=== PATIENT | female | born 1965 | race Two or more races ===

== ENCOUNTER 2017-07-24 08:34 | Day surgery (SDC) | payer OTHER ==
[~2017-07-24] VITALS: Ht 157.5 cm; Wt 94.8 kg
[2017-07-24 09:17] VITALS: BP 136/81
[2017-07-24 15:37] VITALS: BP 119/66
== END 2017-07-24 15:25 | disposition home or self-care (01) ==
LOC: DS 08:34 → OR 10:30 → GI 10:30 → DS 15:25
PROVIDERS: Surgery
PROC: 0FT44ZZ Resection of Gallbladder, Percutaneous Endoscopic Approach (ICD-10-PCS; principal; 2017-07-24 10:30)
DX: K80.10 Calculus of gallbladder with chronic cholecystitis without obstruction (principal); K76.0 Fatty (change of) liver, not elsewhere classified; E03.9 Hypothyroidism, unspecified; E66.9 Obesity, unspecified; Z68.41 Body mass index [BMI] 40.0-44.9, adult
CPT/HCPCS: J0690; J1170; J2405; J2704; J2710; J3010; J3490; J7030; J7120

== ENCOUNTER 2017-08-25 14:35 | Emergency (ER) | payer OTHER ==
[~2017-08-25] VITALS: Ht 157.5 cm; Wt 93.9 kg
[2017-08-25 17:34] LABS: BASOPHIL % 0.1 % (0-2); PLATELET COUNT 184 x10^3mcL (130-400); RED CELL DISTRIBUTION WIDTH 13.1 % (11.5-14.5)
[2017-08-25 17:39] LABS: CALCIUM 8.5 mg/dL (8.5-10.1); CARBON DIOXIDE 24.7 mmol/L (21-32); CHLORIDE SERUM 99 mmol/L (98-107); CREATININE SERUM 0.8 mg/dL (0.6-1.0); GFR1 > 60 mL/min; GLUCOSE SERUM 126 mg/dL (74-106); POTASSIUM SERUM 3.6 mmol/L (3.5-5.1); SODIUM SERUM 134 mmol/L (136-145)
[2017-08-25 17:52] LABS: ALBUMIN 3.4 g/dL (3.4-5.0); ALKALINE PHOSPHATASE 97 U/L (46-116); ALT/SGPT 50 U/L (14-59); AST/SGOT 30 U/L (15-37); BILIRUBIN TOTAL 0.83 mg/dL (0.20-1.00); CHOLESTEROL 167 mg/dL (<200); HDL CHOLESTEROL 52 mg/dL (40-60)
[2017-08-25 20:00] LABS: UA SPECIFIC GRAVITY <=1.005 (1.005-1.035); microscopic required? YES; urine erythrocyte 3+ (NEGATIVE)
[2017-08-25 21:16] VITALS: BP 128/63
== END 2017-08-25 21:16 | disposition home or self-care (01) ==
LOC: ED 14:35
PROVIDERS: Emergency Medicine
DX: N39.0 Urinary tract infection, site not specified (principal); Z90.710 Acquired absence of both cervix and uterus
CPT/HCPCS: 83880; J0696; J1885; J7030

== ENCOUNTER 2017-08-29 00:39 | Inpatient (IN) | payer OTHER ==
[~2017-08-29] VITALS: Ht 157.5 cm; Wt 88.5 kg
--- NOTE | 2017-08-29 01:05 | NUR ---
PT WAS CALLED TO RETURN FOR (+) BLOOD CULTURE WELL 2 DIFFERENT ORGANISMS IN HER URINE CULTURE, ONE ESBL. PT WAS SEEN HERE 08/25/17 FOR FEVER & DX W/ UTI. PT HAD HYSTERECTOMY 08/21/17 @ [facility]. PT STATES SHE WENT TO [facility] YESTERDAY FOR CONTINUED FEVERS BUT LEFT WITHOUT BEING SEEN AFTER WAITING FOR SEVERAL HOURS. SEE BY DR. ANGULO.
[2017-08-29 01:44] LABS: BASOPHIL % 0.6 % (0-2); PLATELET COUNT 221 x10^3mcL (130-400); RED CELL DISTRIBUTION WIDTH 13.5 % (11.5-14.5)
[2017-08-29 01:58] LABS: CALCIUM 8.4 mg/dL (8.5-10.1); CARBON DIOXIDE 31.6 mmol/L (21-32); CHLORIDE SERUM 104 mmol/L (98-107); CREATININE SERUM 0.7 mg/dL (0.6-1.0); GFR1 > 60 mL/min; GLUCOSE SERUM 101 mg/dL (74-106); POTASSIUM SERUM 3.3 mmol/L (3.5-5.1); SODIUM SERUM 142 mmol/L (136-145)
[2017-08-29 02:03] LABS: ALKALINE PHOSPHATASE 201 U/L (46-116); ALT/SGPT 69 U/L (14-59); AST/SGOT 51 U/L (15-37); BILIRUBIN TOTAL 0.34 mg/dL (0.20-1.00); TOTAL PROTEIN, SERUM 6.8 g/dL (6.4-8.2)
[2017-08-29 02:04] LABS: ALBUMIN 2.9 g/dL (3.4-5.0)
[2017-08-29 02:37] LABS: UA SPECIFIC GRAVITY <=1.005 (1.005-1.035); microscopic required? YES; urine erythrocyte TRACE (NEGATIVE)
--- NOTE | 2017-08-29 03:39 | NUR ---
REPORT CALLED TO BRANDAN ADAME TO ASSUME CARE OF PT POST TRANSFER TO TELE UNIT.
[2017-08-29 03:48] LABS: AMPHETAMINE QUAL UR NONE DETECTED (NEG <=1000)
[2017-08-29 03:58] LABS: MAGNESIUM 2.2 mg/dL (1.8-2.4); PHOSPHOROUS 3.9 mg/dL (2.5-4.9)
[2017-08-29 04:00] LABS: CHOLESTEROL/HDL RATIO 8.4
[2017-08-29 04:09] LABS: T3 TOTAL 1.11 ng/mL
[2017-08-29 04:18] VITALS: BP 136/79
[2017-08-29 04:29] LABS: FREE T4 1.34 ng/dL (0.76-1.46); FREE THYROXINE INDEX 3.8 ug/dL (1.4-4.5); T4(THYROXINE) 10.9 ug/dL (4.7-13.3)
--- NOTE | 2017-08-29 04:42 | NUR ---
PATIENT RECEIVED FROM ED VIA GUERNEY ASSISTED BY RN. NO DISTRESS NOTED. PATIENT C/O 8/10 ABD PAIN, WILL MEDICATE PER DOCTOR'S PRN ORDER. PATIENT C/O MILD HEADACHE AND DIZZINESS. PATIENT C/O NAUSEA BUT NO VOMITING AT THIS TIME. IV SITE TO LEFT AC, PATENT AND INTACT. IV FLUID STARTED PER DOCTOR'S ORDER. BED IN LOWEST POSITION. PATIENT ORIENTED TO ROOM AND CALL LIGHT. WILL CONTINUE TO MONITOR.
[2017-08-29] MEDS ORDERED: SYNTHROID0.075 MG PO (05:36)
[2017-08-29] MEDS ORDERED: ATORVASTATIN CA40 M1 PO (05:37)
--- NOTE | 2017-08-29 06:07 | NUR ---
PT HAS BEEN RESTING SINCE ARRIVING ON UNIT. PT MEDICATED NORCO X1 FOR ABDOMINAL PAIN 8; PT APPEARS TO BE COMFORTABLE WITH NO DISCOMFORT NOTED. PT STATES HER PAIN IS "MUCH BETTER," AND REPORTS IT NOW TO BE 4/10. PT HAS NS IN THE LAC INFUSING PER MD ORDER. IV PATENT AND INTACT. PT IS ON CONTACT ISOLATION FOR ESBL/BACTEREMIA IN URINE. ALL SAFETY MEASURES ENSURED. CALL LIGHT AND PERSONAL BELONGINGS WITHIN REACH. WILL CONTINUE TO MONITOR.
--- NOTE | 2017-08-29 08:00 | NUR ---
AWAKE AND ALERT. TEMP 97.3. TELE #36 SINUS NAYLA RATE 58. RESP 18 EVEN. BREATH SOUNDS CLEAR. NO COUGH OR SOB. ABD SOFT, BOWEL TONES PRESENT. ABD INCISIONS WELL HEALED FROM [place] DONE JUL 2017. DENIES PAIN. VOIDING QS. NO EDEMA. PULSES PRESENT. SCD IN PLACE. IV PATENT LAC INFUSING NORMAL SALINE 100CC/HR. CONTACT ISOLATION MAINTAINED FOR ESBL URINE. SIDE RAILS UP X2. CALL LIGHT IN REACH.
[2017-08-29 09:24] VITALS: BP 112/74
--- NOTE | 2017-08-29 12:25 | NUR ---
DR MICHEL AND MEDICAL TEAM IN ON ROUNDS. CHARGE NURSE AND PRIMARY NURSE PRESENT. DISCUSSED INFECTION PROCESS AND NEED FOR IV ANTIBIOTICS. PT VERBALIZED UNDERSTANDING. NO CHANGE IN ORDERS AT THIS TIME.
[2017-08-29 13:41] VITALS: BP 133/88
[2017-08-29 16:44] VITALS: BP 135/82
--- NOTE | 2017-08-29 17:30 | NUR ---
PT RESTING. NO C/O PAIN. IV CONTINUES PATENT. TOLERATES REGULAR DIET WELL. CONTACT ISOLATION MAINTAINED.
--- NOTE | 2017-08-29 19:20 | NUR ---
PT A/O X4. RESTING IN BED COMFORTABLY. DENIES PAIN AT THIS TIME. PT REPORTS NO PROBLEMS WITH VOIDING AND NO BURNING OR PAIN. IV IN LAC PATENT AND INTACT. IV FLUID INFUSING PER MD ORDER. ALL SAFETY MEASURES ENSURED. CALL LIGHT AND PERSONAL BELONGINGS WITHIN REACH. WILL CONTINUE TO MONITOR.
[2017-08-29 21:39] VITALS: BP 148/88
[2017-08-30 05:18] VITALS: BP 137/65
--- NOTE | 2017-08-30 05:39 | NUR ---
PT RESTED WELL THROUGHOUT THE NIGHT. NO C/O PAIN OR ABDOMINAL DISCOMFORT. IV LEVAQUIN INFUSED PER MD ORDER. NO ADVERSE REACTIONS NOTED. IV PATENT AND INTACT. ALL SAFETY MEASURES HAVE BEEN MAINTAINED. CALL LIGHT AND PERSONAL BELONGINGS BY BEDSIDE. WILL CONTINUE TO MONITOR
--- NOTE | 2017-08-30 08:00 | NUR ---
A/A/OX3. TELE#36 = SR; HR = 70; DENIED CHEST PAIN. NO RESP DISTRESS ON RA; O2 SAT 95%. C/O LOWER ABD PAIN 6/10 ON AND OFF. PAIN MEDS WOULD BE FOLLOWED. STATED DYSURINE SUBSIDED. IVF OF NS 100CC/HR INFUSHING WELL. IV SITE TO LAC INTACT. TOLERATED REGULAR DIET BREAKFAST, ABD OBESE/SOFT. BOWEL SOUND ACTIVE. HAD BM THIS AM. HEALED ABD INCISIONS X3, [employer]. CALL LIGHT IN REACH.
[2017-08-30 08:50] VITALS: BP 133/87
[2017-08-30 09:13] LABS: BASOPHIL % 0.4 % (0-2); PLATELET COUNT 203 x10^3mcL (130-400)
--- NOTE | 2017-08-30 09:17 | NUR ---
C/O LOWER ABD PAIN ON AND OFF, 03/28. TORADOL 30MG IVP GIVEN PER ORDER. CONTINUE MONITOR.
[2017-08-30 09:22] LABS: CALCIUM 8.4 mg/dL (8.5-10.1); CARBON DIOXIDE 26.5 mmol/L (21-32); CHLORIDE SERUM 104 mmol/L (98-107); CREATININE SERUM 0.7 mg/dL (0.6-1.0); GFR1 > 60 mL/min; GLUCOSE SERUM 178 mg/dL (74-106); POTASSIUM SERUM 3.8 mmol/L (3.5-5.1); SODIUM SERUM 140 mmol/L (136-145)
--- NOTE | 2017-08-30 09:25 | NUR ---
DR. MICHEL AND MEDICAL TEAM MADE MORNING ROUND. PLAN OF CARE DISCUSSED WITH PATIENT IN [place] BY DR. MICHEL. PATIENT AGREED WITH.
[2017-08-30 13:50] VITALS: BP 136/83
[2017-08-30 17:35] VITALS: BP 148/43
--- NOTE | 2017-08-30 18:22 | NUR ---
CONDITION STABLE. DENIED PAIN NOW. ABD INCISIONAL SITES COVERED WITH DERMABAND. NO REDNESS SEEN. VOID PLENTY OF URINE. ENDORSED CARE TO [facility] NURSE.
--- NOTE | 2017-08-30 19:21 | NUR ---
REC'D PT FROM DAY NURSE. AAOX4, SPEECH CLEAR, FOLLOWS COMMANDS. NO SIGNS OF DISTRESS NOTED. BREATHING EVEN/UNLABORED ON RA. DENIES RESP DISTRESS OR SOB. TELE 36. DENIES CP, DIZZINESS, OR PALPITATIONS. NO EDEMA NOTED. ABD SOFT/ROUND. BOWEL SOUNDS ACTIVE. DENIES N/V. REPORTS ABD PAIN AND TENDERNESS 7/10 TO WENDY LOWER QUADRANTS. WILL GIVE TORADOL PER ORDER. VOIDING FREELY. AMBULATORY. NOTED SMALL SUTURE TO LUQ WITH DERMABOND. IV TO LAC PATENT AND INFIUSING, SITE WNL. CALL LIGHT WITHIN REACH, BED AT LOWEST POSITION. WILL CONTINUE TO MONITOR.
[2017-08-30 20:44] VITALS: BP 141/90
--- NOTE | 2017-08-31 00:03 | NUR ---
PT RESTING IN BED WITH EYES CLOSED. NO SIGNS OF DISTRESS NOTED. BREATHING EVEN/UNLABORED ON RA. CALL LIGHT WITHIN REACH, BED AT LOWEST POSITION. WILL CONTINUE TO MONITOR.
[2017-08-31 05:34] VITALS: BP 136/85
--- NOTE | 2017-08-31 06:44 | NUR ---
PT RESTING AWAKE IN BED. NO COMPLAINTS AT THIS TIME. DENIES PAIN OR DISCOMFORT. DUE MEDS GIVEN. PICTURE OF ABD RETAKEN. NO SIGNIFICANT CHANGES DURING SHIFT. CALL LIGHT WITHIN REACH, BED AT LOWEST POSITION. WILL ENDORSE TO DAY NURSE.
[2017-08-31 06:48] LABS: BASOPHIL % 0.5 % (0-2); PLATELET COUNT 209 x10^3mcL (130-400); RED CELL DISTRIBUTION WIDTH 12.9 % (11.5-14.5)
[2017-08-31 07:08] LABS: CALCIUM 8.5 mg/dL (8.5-10.1); CARBON DIOXIDE 25.5 mmol/L (21-32); CHLORIDE SERUM 107 mmol/L (98-107); CREATININE SERUM 0.6 mg/dL (0.6-1.0); GFR1 > 60 mL/min; GLUCOSE SERUM 121 mg/dL (74-106); POTASSIUM SERUM 4.1 mmol/L (3.5-5.1); SODIUM SERUM 140 mmol/L (136-145)
--- NOTE | 2017-08-31 07:50 | NUR ---
A+OX4, NO RESPIRATORY DISRESS NOTED, DENIES PAIN, TELE 36, PULSES MODERATE AND EQUAL WENDY, NO EDEMA PRESENT, SCDS ON, LUNG SOUNDS CTA, TOELRATING RA, BOWEL SOUNDS ACTIVE, VOIDING, AMBULATORY, 2 SUTURES WITH DERMABOND TO ABD, IV IN LAC WITH NS @ 100 ML/HR, SITE WNL, RBC 3.59, HGB 11.1, HCT 33.
--- NOTE | 2017-08-31 08:58 | NUR ---
PT RESTING INN BED, NO RESPIRATORY DISTRESS NOTED, DENIES PAIN.
[2017-08-31 10:35] VITALS: BP 128/85
--- NOTE | 2017-08-31 10:41 | NUR ---
PT RESTING IN BED, NO RESPRIATORY DISTRESS NOTED, DENIES PAIN.
[2017-08-31] MEDS ORDERED: CIPRO500 MG PO (11:46)
[2017-08-31] MEDS ORDERED: FLA500 PO (11:50)
[2017-08-31] MEDS ORDERED: LAC PO (11:52)
[2017-08-31 12:05] VITALS: BP 128/85
--- NOTE | 2017-08-31 12:32 | NUR ---
PT GIVEN DISCHARGE INSTRUCTIONS AND VERBALIZED UNDERSTANDING, IV REMOVED WITH CATHETER INTACT, TELE REMOVED AND RETURNED TO [place] STATION. PT AWAITING HADOOP CONSULTANT BY FAMILY.
--- NOTE | 2017-08-31 13:19 | NUR ---
PT OFF UNIT AMBULATING WITH ALL BELONGINGS ESCORTED BY NURSE AND .
== END 2017-08-31 13:24 | disposition home or self-care (01) | DRG 463 ==
LOC: ED 00:39 → DU 03:16
PROVIDERS: Emergency Medicine; ADMIT Student in an Organized Health Care Education/Training Program
DX: N39.0 Urinary tract infection, site not specified (principal); E44.0 Moderate protein-calorie malnutrition; R78.81 Bacteremia; B96.29 Other Escherichia coli [E. coli] as the cause of diseases classified elsewhere; E03.9 Hypothyroidism, unspecified; E87.6 Hypokalemia; B99.8 Other infectious disease; E78.5 Hyperlipidemia, unspecified; R31.9 Hematuria, unspecified; Z16.24 Resistance to multiple antibiotics; Z16.12 Extended spectrum beta lactamase (ESBL) resistance; Z68.37 Body mass index [BMI] 37.0-37.9, adult; Z90.710 Acquired absence of both cervix and uterus; Z90.49 Acquired absence of other specified parts of digestive tract
CPT/HCPCS: 83880; 84439; J1885; J1956; J3490; J7030; Q0092